=== PATIENT | male | born 1950 | race Caucasian/White ===

== ENCOUNTER 2024-02-26 09:57 | Inpatient (IN) | payer MEDICARE, OTHER ==
[~2024-02-26] VITALS: Ht 180.3 cm; Wt 120.0 kg
[2024-02-26] VITALS (26 sets, daily range): BP systolic 94–155; BP diastolic 47–80
--- NOTE | 2024-02-26 10:00 | NUR ---
PATIENT TO ER ROOM 14 VIA WHEELCHAIR ACCOMPANIED BY SPOUSE.
[2024-02-26] MEDS ORDERED: CEFEPIME HYDROCHLORIDE 1 GM in SODIUM CHLORIDE 0.9% 50 ML IV ONE (10:50)
[2024-02-26] MEDS ORDERED: VANCOMYCIN HCL 1 GM in SODIUM CHLORIDE 0.9% 250 ML IV ONE (10:50)
[2024-02-26 11:04] LABS: BASO% 0.4 % (0-3); EOS% 0.4 % (0-8); HEMATOCRIT 42.3 % (39.0-50.0); HEMOGLOBIN 14.5 g/dl (14.0-18.0); IMMATURE GRANULOCYTES 0.5 % (0.0-5.0); LYMPH% 7.1 % (15-41); MEAN CELL VOLUME 90.4 fL CALC (80.0-100.0); MEAN CORPUSCULAR HGB CONC 34.3 g/dL CAL (32.0-36.0); MONO% 9.3 % (2-13); NEUT# 11.7 thou/uL (1.82-7.42); NEUT% 82.3 % (42-76); RED BLOOD COUNT 4.68 mill/uL (4.70-6.10); RED CELL DISTRI WIDTH 13.5 % (11.5-15.5)
[2024-02-26 11:32] LABS: ALBUMIN 4.1 g/dL (3.2-5.0); C-REACTIVE PROTEIN 8.2 mg/dL (0-0.9); CREATININE 0.8 mg/dL (0.7-1.3); POTASSIUM 3.9 mmol/l (3.5-5.1); TOTAL PROTEIN 8.1 g/dL (6.3-8.2)
[2024-02-26 11:39] LABS: BILIRUBIN, TOTAL 2.9 mg/dL (0.2-1.3)
--- NOTE | 2024-02-26 12:22 | NUR ---
IV ABX STOPPED FOR PATIENT TO GO TO ULTRASOUND AND THEN CONTINUE TO RADIOLOGY FOR CT SCAN
[2024-02-26] MEDS ORDERED: ACETAMINOPHEN 325 MG/TAB PO PRN (15:10)
[2024-02-26] MEDS ORDERED: SODIUM CHLORIDE 0.9% 1,000 ML IV PRN (15:10)
[2024-02-26] MEDS ORDERED: MAGNESIUM HYDROXIDE 30 ML UDC PO PRN (15:10)
[2024-02-26] MEDS ORDERED: FUROSEMIDE20 MG PO (15:20)
[2024-02-26] MEDS ORDERED: LISINOPRIL5 MG PO (15:20)
[2024-02-26] MEDS ORDERED: CELEBREX100 M1 PO (15:22)
[2024-02-26] MEDS ORDERED: [UNRECOGNIZED DRUG - OTHER] PO (15:23)
[2024-02-26] MEDS ORDERED: LORTAB 7.57.5 MG PO (15:24)
[2024-02-26] MEDS ORDERED: ZOFRAN4 MG/TAB PO (15:25)
--- NOTE | 2024-02-26 15:32 | NUR ---
NURSE TO NURSE REPORT COMPLETED WITH MED/SURG
--- NOTE | 2024-02-26 16:34 | NUR ---
S: MEGAN PURCELL is a 73 M who presents with NONHEALING WOUND OF RIGHT LOWER EXTREMITY. He has a history of DIABETES, HTN, CHF, PTST. All medications in patient's chart were reviewed. O: VS: BP 137/53, P 74, RR 18,T 98.6 W 115kg, HT 71 IN, Scr=0.8,CrCl= 87ml/min A: Blood culture is pending WOUND CULTURE IS PENDING P: Patient is on CEFEPIME 2GM IV BID Vancomycin ordered for pharmacy to dose. Start Vancomycin 1G IV Q8H. Vancomycin trough is drawn before the 4th dose on @1230. Vancomycin goal trough is between 10-15 mcg/ml. Pharmacy will follow and or advise on antibiotics use as needed.
[2024-02-26] MEDS ORDERED: INSULIN LISPRO 100 UNITS/ML ML SC SCH (17:00)
--- NOTE | 2024-02-26 17:00 | NUR ---
NEW ADMIT DX RIGHT FOOT INFECTION PATIENT DR PALMER. PATIENT ARRIVED TO FLOOR VIA WHEELCHAIR. PATIENT A/OX 4, NO S/S RESPIRATORY DISTRESS PATIENT ON ROOM AIR AND NO C/O PAIN AT THIS TIME. PATIENT DRESSING TO RIGHT FOOT CLEAN DRY AND INTACT. PATIENT AMBULATES WITH CANE. PATIENT NO BM FOR 4 DAYS, POSITIVE BOWEL SOUNDS, AND PATIENT REFUSED MOM PRN FOR CONSTIPATION AT THIS TIME.
--- NOTE | 2024-02-26 17:12 | NUR ---
patient to room 279 via wheelchair, at his side.
--- NOTE | 2024-02-26 17:21 | NUR ---
glucose level was done in er. was 347.
[2024-02-26] MEDS ORDERED: oxyCODONE HCL 5 MG/TAB PO PRN (18:45)
--- NOTE | 2024-02-26 20:00 | NUR ---
PT RECEIVED IN STABLE CONDITION. A/O X4. RESTING IN BED WITH NO COMPLAINTS. NO S/S OF DISTRESS. ROOM AIR. DRSG TO RIGHT FOOT DRY AND INTACT. CALL LIGHT WITHIN REACH. WILL CONTINUE TO MONITOR.
[2024-02-26] MEDS ORDERED: CEFEPIME HYDROCHLORIDE 2 GM in SODIUM CHLORIDE 0.9% 100 ML IV SCH (21:00)
[2024-02-26] MEDS ORDERED: VANCOMYCIN HCL 1 GM in SODIUM CHLORIDE 0.9% 250 ML IV SCH (21:00)
[2024-02-26] MEDS ORDERED: ENOXAPARIN SODIUM 40 MG/0.4 ML SYR SC SCH (21:00)
[2024-02-26] MEDS ORDERED: CYMBALTA30 MG PO (22:10)
[2024-02-26] MEDS ORDERED: HYDROXYZ HCL25 MG PO (22:12)
[2024-02-26] MEDS ORDERED: hydrOXYzine HCL 25 MG/TAB PO PRN (23:15)
[2024-02-26] MEDS ORDERED: HYDROcodone 7.5 MG/Acetaminophen 325 MG/COMBO PO PRN (23:20)
--- NOTE | 2024-02-26 23:35 | NUR ---
PT C/O RT FOOT PAIN. MEDICATED WITH LORTAB 7.5/325MG PO PRN. SEE MAR. RESTING IN BED. CALL LIGHT WITHIN REACH
[2024-02-27 04:41] VITALS: BP 110/53
[2024-02-27 06:53] VITALS: BP 84/28
--- NOTE | 2024-02-27 07:13 | NUR ---
PATIENT LAYING IN BED. PATIENT A&OX4 AND ABLE TO MAKE NEEDS KNOWN. PATIENT DENIES ANY NEEDS AT THIS TIME.
[2024-02-27 08:34] LABS: BASO% 0.5 % (0-3); EOS% 1.1 % (0-8); HEMATOCRIT 36.7 % (39.0-50.0); IMMATURE GRANULOCYTES 0.4 % (0.0-5.0); LYMPH% 8.6 % (15-41); MEAN CELL VOLUME 90.8 fL CALC (80.0-100.0); MEAN CORPUSCULAR HGB 30.4 pG CALC (26.0-32.0); MEAN CORPUSCULAR HGB CONC 33.5 g/dL CAL (32.0-36.0); MONO% 11.2 % (2-13); NEUT# 9.08 thou/uL (1.82-7.42); NEUT% 78.2 % (42-76); RED BLOOD COUNT 4.04 mill/uL (4.70-6.10); RED CELL DISTRI WIDTH 13.5 % (11.5-15.5)
[2024-02-27 08:44] LABS: HEMOGLOBIN 12.3 g/dl (14.0-18.0)
[2024-02-27 08:53] LABS: ALBUMIN 3.1 g/dL (3.2-5.0); BILIRUBIN, TOTAL 2.3 mg/dL (0.2-1.3); CREATININE 0.6 mg/dL (0.7-1.3); MAGNESIUM 1.7 mg/dL (1.6-2.3); POTASSIUM 3.7 mmol/l (3.5-5.1); TOTAL PROTEIN 6.3 g/dL (6.3-8.2)
[2024-02-27] MEDS ORDERED: CELECOXIB PO SCH (09:00)
[2024-02-27] MEDS ORDERED: DEXTROSE 250 ML IV PRN (11:15)
[2024-02-27] MEDS ORDERED: GADOPICLENOL (VUEWAY) 0.5 MM/ML 3.75MM/7.5ML VIAL IV ONE (11:20)
[2024-02-27] MEDS ORDERED: INSULIN GLARGINE 100 UNITS/ML SC SCH (11:30)
[2024-02-27] MEDS ORDERED: FUROSEMIDE 20 MG/TAB PO SCH (11:30)
--- NOTE | 2024-02-27 12:03 | NUR ---
PATIENT LAYING IN BED. PATIENT DENIES ANY NEEDS AT THIS TIME.
--- NOTE | 2024-02-27 13:04 | NUR ---
S: MEGAN PURCELL is a 73 M who presents with non-healing wound of right lower extremity. O: VS: BP 110/53, P 72, RR 20, T 98.7 W 111 kg, HT 71 in, Scr=0.6, CrCl= 85.9 ml/min Vancomycin trough 02/26@1230 = 12 A: Blood culture is pending. Wound culture is pending. Vancomycin trough level within therapeutic goal range of 10-15. No change in dose warranted. P: Patient is on vancomycin 1 g IV q8h and cefepime 2 g IV q12h. Vancomycin ordered for pharmacy to dose. Continue Vancomycin 1 g IV Q8H. Vancomycin trough is drawn before the dose on 02/26@1330. Vancomycin goal trough is between 10-15 mcg/ml. Pharmacy will follow and or advise on antibiotics use as needed.
[2024-02-27 15:41] VITALS: BP 125/41
--- NOTE | 2024-02-27 15:46 | NUR ---
PATIENT LAYING IN BED. PATIENT DENIES ANY NEEDS AT THIS TIME.
[2024-02-27 19:05] VITALS: BP 126/47
--- NOTE | 2024-02-27 20:44 | NUR ---
PATIENT OBSERVED TO BE RESTING IN BED ON LEFT SIDE. BED SIDE ASSESSMENT COMPLETE. DRESSING TO RIGHT FOOT DRY AND INTACT. NO COMPLAINTS OF PAIN AT THIS TIME. EQUAL UNLABORED RESP. BED AT LOWEST POSITION. CALL LIGHT WITH IN REACH.
[2024-02-27] MEDS ORDERED: DULOXETINE HCl 30 MG/CAP PO SCH (21:00)
[2024-02-27] MEDS ORDERED: LISINOPRIL 5 MG/TAB PO SCH (21:00)
[2024-02-27] MEDS ORDERED: VANCOMYCIN HCL 1 GM in SODIUM CHLORIDE 0.9% 250 ML IV SCH (22:00)
[2024-02-28] VITALS (7 sets, daily range): BP systolic 117–137; BP diastolic 45–71
--- NOTE | 2024-02-28 00:55 | NUR ---
PATIENT IN BED RESTING WITH EYES CLOSED. EQUAL UNLABORED RESP. NO VISUAL SIGNS OF DISTRESS. BED AT LOWEST POSITION. CALL LIGHT WITH IN REACH.
--- NOTE | 2024-02-28 04:49 | NUR ---
PATIENT OBSERVED TO BE RESTING IN BED ON RIGHT SIDE. UNLABORED RESP, NO VISUAL SIGNS OF DISTRESS. BED AT LOWEST POSITION. CALL LIGHT WITH IN REACH.
[2024-02-28 05:26] LABS: BASO% 0.4 % (0-3); EOS% 1.6 % (0-8); HEMATOCRIT 34.9 % (39.0-50.0); HEMOGLOBIN 11.9 g/dl (14.0-18.0); IMMATURE GRANULOCYTES 0.5 % (0.0-5.0); LYMPH% 9.4 % (15-41); MEAN CELL VOLUME 92.1 fL CALC (80.0-100.0); MEAN CORPUSCULAR HGB 31.4 pG CALC (26.0-32.0); MEAN CORPUSCULAR HGB CONC 34.1 g/dL CAL (32.0-36.0); NEUT# 8.24 thou/uL (1.82-7.42); NEUT% 74.1 % (42-76); RED BLOOD COUNT 3.79 mill/uL (4.70-6.10); RED CELL DISTRI WIDTH 13.4 % (11.5-15.5)
[2024-02-28 05:37] LABS: ALBUMIN 2.8 g/dL (3.2-5.0); BILIRUBIN, TOTAL 2.2 mg/dL (0.2-1.3); CREATININE 0.7 mg/dL (0.7-1.3); MAGNESIUM 1.7 mg/dL (1.6-2.3); POTASSIUM 3.6 mmol/l (3.5-5.1); TOTAL PROTEIN 5.9 g/dL (6.3-8.2)
--- NOTE | 2024-02-28 08:36 | NUR ---
PATIENT LAYING IN BED. PATIENT A&OX3 AND ABLE TO MAKE NEEDS KNOWN. PATIENT DENIES ANY NEEDS AT THIS TIME.
--- NOTE | 2024-02-28 11:55 | NUR ---
PATIENT LAYING IN BED. PATIENT DENIES ANY NEEDS AT THIS TIME.
--- NOTE | 2024-02-28 13:15 | NUR ---
REPORT RECEIVED FROM ISABEL AND PT SEEN RESTING IN BED WITH AT BEDSIDE. PT C/O LEFT A/C IV SITE IRRITATING HIM, HENCE REMOVED WITH CATH TIP INTACT AND NEW IV STARTED TO LEFT HAND # 20G X 1 ATTEMPT. PT RAMÓN WELL. PT THEN C/O PAIN TO RIGHT FOOT AND MEDICATED WITH ORDERED LORTAB FOR PAIN 10/23. WILL MONITOR.
[2024-02-28] MEDS ORDERED: ONDANSETRON 4 MG/TAB ODT PO PRN (14:40)
--- NOTE | 2024-02-28 14:42 | NUR ---
S: MEGAN PURCELL is a 73 M who presents with non-healing wound of right foot. O: VS: BP 133/53, P 66, RR 21, T 98 W 111 kg, HT 71 in, Scr=0.7, CrCl= 87 ml/min Vancomycin trough level 02/27@1330 = 13 A: Blood culture is pending. Wound culture is growing normal skin janee. Vancomycin trough level within therapeutic goal range of 10-15. No change in dose is warranted. P: Patient is on vancomycin 1 g IV q8h and cefepime 2g iv q12h. Vancomycin ordered for pharmacy to dose. Continue Vancomycin 1 g IV Q8H. Vancomycin trough is drawn before the dose on 03/01@1330. Vancomycin goal trough is between 10-15 mcg/ml. Pharmacy will follow and or advise on antibiotics use as needed.
[2024-02-28] MEDS ORDERED: HYDROcodone 7.5 MG/Acetaminophen 325 MG/COMBO PO PRN (15:05)
--- NOTE | 2024-02-28 18:00 | NUR ---
PT RESTED ON AND OFF THIS SHIFT WITH VISITING AT BEDSIDE. PT AWAITING POTENTIAL SURGICAL PROCEDURE IN AM. PAIN MANAGED WITH LORTAB AND ZOFRAN FOR NAUSEA. DRESSING TO RIGHT FOOT INTACT. IVF CONTINUE AND PT RAMÓN HIS DIET. WILL CONTINUE TO MONITOR.
--- NOTE | 2024-02-28 19:15 | NUR ---
Pt is alert and orient and able to make needs known. Assessment complete. Dressing to right foot intact with some old dry blood noted. No complaint of pain or discomfort at this time. Bed in low position with call light within reach.
[2024-02-29] VITALS (10 sets, daily range): BP systolic 125–140; BP diastolic 33–62
--- NOTE | 2024-02-29 00:14 | NUR ---
Pt is resting in bed comfortably at this time. No complaint of pain or discomfort. No distress noted. Bed in low position with call light within reach.
--- NOTE | 2024-02-29 04:08 | NUR ---
Pt is resting in bed comfortably at this time. Pt has been NPO since midnight. Pt is showing no s/s of distress or discomfort at this time. Bed in low position with call light within reach.
[2024-02-29 05:48] LABS: BASO% 0.4 % (0-3); EOS% 1.9 % (0-8); HEMATOCRIT 35.5 % (39.0-50.0); HEMOGLOBIN 11.7 g/dl (14.0-18.0); IMMATURE GRANULOCYTES 0.7 % (0.0-5.0); LYMPH% 9.9 % (15-41); MEAN CELL VOLUME 92.9 fL CALC (80.0-100.0); MEAN CORPUSCULAR HGB 30.6 pG CALC (26.0-32.0); MONO% 14.5 % (2-13); NEUT# 7.22 thou/uL (1.82-7.42); NEUT% 72.6 % (42-76); RED BLOOD COUNT 3.82 mill/uL (4.70-6.10); RED CELL DISTRI WIDTH 13.4 % (11.5-15.5)
[2024-02-29 05:52] LABS: ALBUMIN 2.6 g/dL (3.2-5.0); BILIRUBIN, TOTAL 1.7 mg/dL (0.2-1.3); CREATININE 0.6 mg/dL (0.7-1.3); POTASSIUM 3.3 mmol/l (3.5-5.1); TOTAL PROTEIN 5.7 g/dL (6.3-8.2)
[2024-02-29 06:09] LABS: MAGNESIUM 1.7 mg/dL (1.6-2.3)
--- NOTE | 2024-02-29 07:15 | NUR ---
REPORT RECEIVED FROM MAGNOLIA. PT RESTING IN BED TO RIGHT SIDE. AWAITING SURGERY. HOWEVER, DR. TORRES CALLED AND SX SCHEDULED FOR TOMORROW. D/W DR. TORRES NEED FOR BOWEL REGIME D/T PT HAVING NO BM X 5 DAYS. ORDERS RECEIVED AND PT UPDATED ON POC. TO BE NPO AFTER MN TONIGHT. RIGHT FOOT DRESSING REMAINS INTACT WITH RIGHT LE REDNESS. WILL MONITOR.
[2024-02-29] MEDS ORDERED: Polyethylene Glycol 3350 17 GM/PKT PO PRN (07:50)
[2024-02-29] MEDS ORDERED: MAGNESIUM HYDROXIDE 30 ML UDC PO PRN (07:50)
[2024-02-29] MEDS ORDERED: DOCUSATE SODIUM 100 MG/CAP PO SCH (09:00)
[2024-02-29] MEDS ORDERED: INSULIN GLARGINE 100 UNITS/ML SC SCH (09:00)
--- NOTE | 2024-02-29 12:00 | NUR ---
RIGHT FOOT DRESSING CHANGED WITH ODOR NOTED. PT HAVING MODERATE DRAINAGE HENCE OPTIFOAM PLACED WITH GAUZE AND KERLIX WRAP WITH LESLYE. PT RAMÓN WELL. PAIN MANAGED WITH ORDERED LORTAB. WILL MONITOR.
--- NOTE | 2024-02-29 16:00 | NUR ---
PT TO MRI VIA W/C. AT BEDSIDE AND UPDATED ON POC. PT TO BE NPO AFTER MN FOR SURGERY. WILL MONITOR
--- NOTE | 2024-02-29 18:15 | NUR ---
PT RESTED ON AND OFF THIS SHIFT AND COMPLETED MRI. AWAITING SURGERY SCHEDULED FOR TOMORROW. INSTRUCTED ON NPO AFTER MN. PT TO AWAIT SPEAKING TO MD ACSSIDY: SURGICAL PROCEDURE TO SIGN CONSENT. PAIN MANAGED WITH LORTAB AND IV REMAINED PATENT. PT DID HAVE A BM THIS AFTERNOON. VISITED WELL AND CALL LIGHT MAINTAINED IN REACH.
--- NOTE | 2024-02-29 20:00 | NUR ---
PATIENT SITTING UP IN RECLINER-ALERT AND OPRIENTEDX3. PATIENT WITH IVF PATENT AND INFUSING VIA LEFT HAND ORDERED AT 100CC/HR. DRESSING TO RIGHT FOOT INTACT AT THIS TIME. ENCOURAGED TO ELEVATE RIGHT FOOT WHEN POSSIBLE. TELE MONITOR IN PLACE READING SR-70'S. SAFETY PRECAUTIONS REINFORCED. CALL LIGHT IN REACH. WILL CONT TO MONITOR.
--- NOTE | 2024-02-29 21:00 | NUR ---
PATIENT RESTING IN BED AT THIS TIME. PATIENT REFUSED STOOL SOFTNER EVEN THOUGH HE STATES THAT HE ONLY HAD FAIR BM TODAY AFTER TAKING LAXATIVES. LOVENOX WAS HELD-PLATELET CT WAS 8U1 AND PATIENT IS SCHEDULED FOR OR ON RIGHT FOOT IN THE AM. SAFETY PRECAUTIONS REINFORCED. CALL LIGHT IN REACH. WILL CONT TO MONITOR.
--- NOTE | 2024-02-29 23:00 | NUR ---
PATIENT UP TO THE BR-STATES THAT HE CONT TO HAVE BM'S TONIGHT. VOIDED APPROX 100CC OF FRANTZ URINE. MEDICATED FOR PAIN TO RIGHT FOOT WITH LORTAB 7.5MG PO. WOUND CARE TO RIGHT FOOT ORDERED. MODERATE AMT OF SEROSANGUINOUS FLUID NOTED ON OLD DRESSING. NEW DRY DRESSING APPLIED ORDERED. SECURED WITH LESLYE WRAP AND SURGIFLEX. ELEVATED RIGHT FOOT ON PILLOW. IVF PATENT AND INFUSING ORDERED VIA LEFT HAND. SAFETY PRECAUTIONS REINFORCED. CALL LIGHT IN REACH. WILL CONT TO MONITOR.
[2024-03-01] VITALS (13 sets, daily range): BP systolic 126–150; BP diastolic 41–74
--- NOTE | 2024-03-01 03:00 | NUR ---
PATIENT IS RESTING IN BED AT THIS TIME WITH EYES CLOSED. RESPS ARE EVEN AND UNLABORED. NPO FOR OR THIS MORNING. RIGHT FOOT ELEVATED ON PILLOW. DRESSING TO RIGHT FOOT INTACT, TELE MONITOR IN PLACE-READING SR-60'S. IVF NS PATENT AND INFUSING VIA LEFT HAND SITE AT 100CC/HR. CALL LIGHT IN REACH. WILL CONT TO MONITOR.
[2024-03-01 05:10] LABS: BASO% 0.4 % (0-3); EOS% 1.9 % (0-8); HEMATOCRIT 33.1 % (39.0-50.0); HEMOGLOBIN 11.3 g/dl (14.0-18.0); IMMATURE GRANULOCYTES 0.9 % (0.0-5.0); LYMPH% 8.5 % (15-41); MEAN CELL VOLUME 91.4 fL CALC (80.0-100.0); MEAN CORPUSCULAR HGB 31.2 pG CALC (26.0-32.0); MEAN CORPUSCULAR HGB CONC 34.1 g/dL CAL (32.0-36.0); MONO% 14.8 % (2-13); NEUT# 7.92 thou/uL (1.82-7.42); NEUT% 73.5 % (42-76); RED BLOOD COUNT 3.62 mill/uL (4.70-6.10); RED CELL DISTRI WIDTH 13.4 % (11.5-15.5)
[2024-03-01 05:22] LABS: ALBUMIN 2.5 g/dL (3.2-5.0); BILIRUBIN, TOTAL 1.3 mg/dL (0.2-1.3); CREATININE 0.7 mg/dL (0.7-1.3); MAGNESIUM 1.8 mg/dL (1.6-2.3); POTASSIUM 3.2 mmol/l (3.5-5.1); TOTAL PROTEIN 5.6 g/dL (6.3-8.2)
--- NOTE | 2024-03-01 06:44 | NUR ---
pt aox4, respirations are even and unlabored on room air, lungs are clear throughout, bowel sounds active. pt about to leave for sx.
--- NOTE | 2024-03-01 06:45 | NUR ---
pt off the floor via staff transport for sx.
[2024-03-01] MEDS ORDERED: BUPIVACAINE HCL PF 0.5% 30 ML VIAL ONE (07:06)
[2024-03-01] MEDS ORDERED: SODIUM CHLORIDE 0.9% 1,000 ML IV ONE (09:33)
[2024-03-01] MEDS ORDERED: KETOROLAC TROMETHAMINE 30 MG/ML SDV ONE (09:47)
[2024-03-01] MEDS ORDERED: MORPHINE SULFATE 4 MG/ML VIAL ONE (09:47)
[2024-03-01] MEDS ORDERED: PROPOFOL 200 MG/20 ML VIAL IV ONE (09:51)
[2024-03-01] MEDS ORDERED: ACETAMINOPHEN 1,000 MG/100 ML VIAL IV ONE (09:51)
--- NOTE | 2024-03-01 10:30 | NUR ---
PT RETURNED TO UNIT VIA STAFF TRANSPORT FROM SURGERY.
[2024-03-01] MEDS ORDERED: FAMOTIDINE 10MG/ML 2ML SDV IV ONE (12:00)
[2024-03-01] MEDS ORDERED: ONDANSETRON HCl 4 MG/2 ML SDV IV ONE (12:00)
--- NOTE | 2024-03-01 12:35 | NUR ---
PT SITTING UP AT SIDE OF THE BED EATING LUNCH AT THIS TIME. SO FAR PT IS TOLARATING LUNCH WITH NO COMPLAINTS.
--- NOTE | 2024-03-01 14:35 | NUR ---
CALL PLACED TO PHARMACY FOR TONA TAVAREZ. PHARMACY WORKING ON CHANGED DOES AT THIS TIME.
--- NOTE | 2024-03-01 15:08 | NUR ---
S: MEGAN PURCELL is a 73 M who presents with cellulitis. Patient underwent surgery on 03/01. MRI foot on 02/28 showed no evidence of osteomyelitis. O: VS: BP 126/41, P 6, RR 20,T 97.7 W 116.8 kg, HT 71 in, Scr= 0.7,CrCl= 87 ml/min A: Blood culture shows no growth at 48 hrs. Wound culture is pending. P: Patient is on Vancomycin and Cefepime. Vancomycin ordered for pharmacy to dose. Vancomycin trough resulted on 03/01 1330 was 18 mcg/ml. Change Vancomycin to 1250 mg IV q12h. Vancomycin trough is drawn before the 4th dose on 03/03 0530. Vancomycin goal trough is between <10-15 mcg/ml>. Pharmacy will follow and or advise on antibiotics use as needed.
[2024-03-01] MEDS ORDERED: VANCOMYCIN HCL 1,250 MG in SODIUM CHLORIDE 0.9% 225 ML IV SCH (18:00)
--- NOTE | 2024-03-01 20:00 | NUR ---
PATIENT RESTING IN BED AT THIS TIME-POSITIONED ON RIGHT SIDE. PATIENT IS AWAKE ALERT AND ORIENTEDX3. PATIENT WITH DRESSING TO RIGHT FOOT INTACT AND SECURED WITH LESLYE WRAP. ENCOURAGED PATIENT TO KEEP RIGHT FOOT ELEVATED ON 2 PILLOWS WHEN POSSIBLE. ALSO INSTRUCTED PATIENT ON NON-WEIGHT BEARING STATUS. TELE MONITOR IN PLACE AND READING SR-60'S. IVF PATENT AND INFUSING LEFT HAND/WRIST SITE AT 100CC/HR. SITE IS HEALTHY WITH GOOD BLOOD RETURN WHEN FLUSHED. LUNGS ARE CLEAR. INSTRUCTED ON USE OF IS Q1H WHILE AWAKE IN REPS OF 10. PATIENT REFUSING STOOL SOFTNER TONIGHT-STATES THAT HE WILL TAKE IT TOMORROW. VOIDING FRANTZ URINE AT BEDSIDE. SAFETY PRECAUTIONS REINFORCED. CALL LIGHT IN REACH. WILL CONT TO MONITOR.
--- NOTE | 2024-03-01 21:00 | NUR ---
PATIENT RESTING IN BED-BLOOD SUGAR WAS 279-COVERED WITH 3UNITS OF HUMALOG INSULIN PER [employer] PROTOCOL. PROVIDED WITH HS SNACK. CALL LIGHT IN REACH. WILL CONT TO MONITOR.
[2024-03-02] VITALS (10 sets, daily range): BP systolic 141–165; BP diastolic 54–69
--- NOTE | 2024-03-02 | NUR ---
PATIENT RESTING IN BED WITH RIGHT FOOT ELEVATED ON PILLOWS. RIGHT FOOT DRESSING REMAINS INTACT SECURED WITH LESLYE WRAP. SOME SEROGANUINOUS DRAINAGE NOTED ON DRESSING. IVF PATENT AND INFUSING VIA LEFT WRIST/HAND AT 100CC/HR. TELE MONITOR IN PLACE AND READING SR-60'S. EYES ARE CLOSED AND RESPS ARE EVEN AND UNLABORED. CALL LIGHT IN REACH. WILL CONT TO MONITOR.
--- NOTE | 2024-03-02 04:00 | NUR ---
PATIENT RESTING IN BED AT THIS TIME WITH EYES CLOSED. RESPS ARE EVEN AND UNLABORED. RIGHT FOOT ELEVATED ON PILLOWS WITH DRESSING INTACT. TELE MONITOR IN PLACE AND READING SR-60'S. IVF PATENT AND INFUSING VIA LEFT WRIST AT 100CC/HR. CALL LIGHT IN REACH. WILL CONT TO MONITOR.
[2024-03-02 05:34] LABS: BASO% 0.5 % (0-3); EOS% 2.5 % (0-8); HEMATOCRIT 29.1 % (39.0-50.0); HEMOGLOBIN 10.1 g/dl (14.0-18.0); IMMATURE GRANULOCYTES 2.4 % (0.0-5.0); LYMPH% 10.1 % (15-41); MEAN CELL VOLUME 90.1 fL CALC (80.0-100.0); MEAN CORPUSCULAR HGB 31.3 pG CALC (26.0-32.0); MEAN CORPUSCULAR HGB CONC 34.7 g/dL CAL (32.0-36.0); MONO% 14.2 % (2-13); NEUT# 7.18 thou/uL (1.82-7.42); NEUT% 70.3 % (42-76); RED BLOOD COUNT 3.23 mill/uL (4.70-6.10); RED CELL DISTRI WIDTH 13.3 % (11.5-15.5)
[2024-03-02 05:49] LABS: ALBUMIN 2.3 g/dL (3.2-5.0); BILIRUBIN, TOTAL 1.1 mg/dL (0.2-1.3); CREATININE 0.8 mg/dL (0.7-1.3); MAGNESIUM 1.7 mg/dL (1.6-2.3); TOTAL PROTEIN 5.4 g/dL (6.3-8.2)
--- NOTE | 2024-03-02 07:47 | NUR ---
PT IS AOX4, RESPIRAYIONS ARE EVEN AND UNLABORED ON ROOM AIR, LUNGS ARE CLEAR, BOWEL SOUNDS ARE ACTIVE, LEFT PEDAL PULSES IS STRONG TO THE THE TOUCH, RIGHT FOOT DRESSING WITH SOME SHADOWING NEAR THE TOES, PT DID NOT HAVE FOOT ELEVATED, REEDUCATED PT ON HAVING FOOT EVEVATED ON PILLOWS, PT REPORTS PAIN AT A 10 ON A 0-10 PAIN SCALE. WILL BRING PT ORDERED PRN PAIN MEDICATION.
[2024-03-02] MEDS ORDERED: INSULIN GLARGINE 100 UNITS/ML SC SCH (09:00)
[2024-03-02] MEDS ORDERED: POTASSIUM CHLORIDE 20 MEQ/TAB PO SCH (10:00)
--- NOTE | 2024-03-02 10:16 | NUR ---
PT OFF THE FLOOR VIA WHEELCHAIR TRANSPORT FOR PICC PLACEMENT.
--- NOTE | 2024-03-02 10:55 | NUR ---
PT RETURNED TO UNIT FROM PICC PLACEMENT.
--- NOTE | 2024-03-02 12:10 | NUR ---
telephone order taken from dr valencia to remove right foot dressing, pull packing, recover with 4x4 covered in betadine, wraped with kurlex.
--- NOTE | 2024-03-02 13:31 | NUR ---
PERFORMED RIGHT FOOT DRESSING CHANGE. REMOVED WRAP, REMOVED 4X4 AND PULLED PACKING, WOUND ARE ODORUS. RECOVED WITH ORDERED BETADINE 4X4, KURLEX AND COVERED WITH LESLYE WRAP. PT TOLERATED WITH NO COMPLAINTS.
--- NOTE | 2024-03-02 13:39 | NUR ---
TELEPHONE ORDER TAKEN FROM DR PALMER TO PLACE ORDER FOR RIGHT FOOT I&D FOR TOMORROW WITH DR PALMER
--- NOTE | 2024-03-02 19:26 | NUR ---
PATIENT OBSERVED RESTING IN BED. ALERT AND ABLE TO MAKE NEEDS KNOWN. ASSESSMENT COMPLETE. NO COMPLAINTS OF PAIN AT THIS TIME. NO DISTRESS NOTED. PATIENT IS ABLE TO CHANGE POSITIONS ON HIS OWN. DRESSING TO RIGHT FOOT INTACT. PATIENT HAS ELEVATED ON PILLOW. CIRCULATION WNL. DENIES NEEDING ANYTHING AT THIS TIME. BED IN LOW POSITION. CALL HOWARD AND BELONGINGS IN REACH.
--- NOTE | 2024-03-02 23:39 | NUR ---
PATIENT REMAINS RESTING IN BED ON HIS LEFT SIDE. NO COMPLAINTS VOICED. DENIES NEEDING ANYTHING AT THIS TIME. BED IN LOW POSITION. CALL HOWARD IN REACH.
[2024-03-03] VITALS (16 sets, daily range): BP systolic 130–165; BP diastolic 47–75
--- NOTE | 2024-03-03 04:03 | NUR ---
PATIENT REMAINS RESTING IN BED. DENIES NEEDING ANYTHING AT THIS TIME. BED REMAINS IN LOW POSITION. CALL HOWARD AND BELONGINGS IN REACH.
[2024-03-03 05:28] LABS: ALBUMIN 2.4 g/dL (3.2-5.0); CREATININE 0.8 mg/dL (0.7-1.3); MAGNESIUM 1.6 mg/dL (1.6-2.3); POTASSIUM 3.1 mmol/l (3.5-5.1); TOTAL PROTEIN 5.6 g/dL (6.3-8.2)
[2024-03-03 05:40] LABS: BASO% 0.6 % (0-3); EOS% 2.3 % (0-8); HEMATOCRIT 28.9 % (39.0-50.0); IMMATURE GRANULOCYTES 3.1 % (0.0-5.0); LYMPH% 10.7 % (15-41); MEAN CORPUSCULAR HGB 31.2 pG CALC (26.0-32.0); MEAN CORPUSCULAR HGB CONC 34.6 g/dL CAL (32.0-36.0); NEUT# 5.76 thou/uL (1.82-7.42); NEUT% 69.3 % (42-76); RED BLOOD COUNT 3.21 mill/uL (4.70-6.10); RED CELL DISTRI WIDTH 13.3 % (11.5-15.5)
--- NOTE | 2024-03-03 06:55 | NUR ---
DR PALMER AT BEDSIDE DISCUSSING PLAN OF CARE WITH PT AT THIS TIME.
--- NOTE | 2024-03-03 07:10 | NUR ---
PT IS AOX4, RESPIRATIONS ARE EVEN AND UNLABORED ON ROOM AIR BUT PT DOES REPORT FEELING "SHORT OF BREATH" WITH AMBULATION LASTNIGHT, LUNGS ARE CLEAR THROUGHOUT, BOWEL SOUNDS ARE ACTIVE, RIGHT FOOT IS COVERED IN DRESSING, LEFT PEDAL PULSES IS PALPABLE TO TOUCH, PT REPORTS PAIN "NOT MUCH" THIS MORNING. PT DOES REPORT HAVING TO VOID "16 TIMES" OVERNIGHT AND IS SAYING HE DOES NOT WANT TO TAKE THE LASIX. NURSE INFORMED PT HE SHOULD DISCUSS THAT WITH THE DOCTOR THIS MORNING.
[2024-03-03] MEDS ORDERED: INSULIN GLARGINE 100 UNITS/ML SC SCH (09:00)
--- NOTE | 2024-03-03 09:00 | NUR ---
PT REPORTS FEELING LIKE HES "WHEEZING" NURSE LISTED TO PT'S LUNGS AND DID NOT HEAR ANY WHEEZING. REINFORCED THE USE OF THE IS. PT STATES SHE UNDERSTANDS.
[2024-03-03] MEDS ORDERED: PROPOFOL 200 MG/20 ML VIAL IV ONE (09:51)
[2024-03-03] MEDS ORDERED: GLYCOPYRROLATE 0.2 MG/ML IV ONE (09:51)
--- NOTE | 2024-03-03 10:33 | NUR ---
PT LEFT THE UNIT VIA STAFF TRANSPORT FOR SURGERY.
[2024-03-03] MEDS ORDERED: STERILE WATER FOR IRRIGATION 1,000 ML BTL IR ONE (10:42)
[2024-03-03] MEDS ORDERED: BUPIVACAINE HCL PF 0.5% 30 ML VIAL ONE (10:42)
[2024-03-03] MEDS ORDERED: SODIUM CHLORIDE 0.9% 1,000 ML IV ONE ×2 (10:42→10:50)
[2024-03-03] MEDS ORDERED: FAMOTIDINE 10MG/ML 2ML SDV IV ONE (11:03)
[2024-03-03] MEDS ORDERED: POTASSIUM CHLORIDE 20 MEQ/TAB PO SCH (13:30)
--- NOTE | 2024-03-03 13:56 | NUR ---
S: MEGAN PURCELL is a 73 M who presents with nonhealing wound of the right foot. O: VS: BP 138/66, P 78, RR 16, T 97.3 W 119.4 kg, HT 71 in, Scr=0.8, CrCl= 89 ml/min Vancomycin trough 03/03/24@0500 = 17 A: Vancomycin trough level above therapeutic range of 10-15. Decrease in dose is warranted. P: Patient is on vancomycin 1250 mg IV q12h and cefepime 2 g IV q12h. Vancomycin ordered for pharmacy to dose. Decrease Vancomycin to 1g IV Q12H. Vancomycin trough is drawn before the 4th dose on 03/05@0530. Vancomycin goal trough is between 10-15 mcg/ml. Pharmacy will follow and or advise on antibiotics use as needed.
--- NOTE | 2024-03-03 14:00 | NUR ---
pt returned to unit from post-op after 2nd I & D with KRUSE. PTS RESPIRATIONS ARE EVEN AND UNLABORED BUT HIS O2 WAS DROPPING TO 89% ON ROOM AIR SO HE WAS PLACED ON 2L O2 BRINGING HIS OXYGEN SAT UP TO 96%. PT'S FOOT PLACED ON 2 PILLOWS ORDERED. REEDUCATED PT ON THE "NO WEIGHT BARING" ORDER.
--- NOTE | 2024-03-03 14:23 | NUR ---
PT REPORTING A SHARP PAIN IN LEFT FOOT AT A 10 ON A 0-10 PAIN SCALE. PROVIDED PT WITH THE ORDERED PRN PAIN MEDICATION.
[2024-03-03] MEDS ORDERED: HYDROmorphone HCL 2 MG/AMP IV PRN (14:55)
[2024-03-03] MEDS ORDERED: metFORMIN HYDROCHLORIDE 500 MG/TAB PO SCH (17:30)
[2024-03-03] MEDS ORDERED: VANCOMYCIN HCL 1 GM in SODIUM CHLORIDE 0.9% 250 ML IV SCH (18:00)
--- NOTE | 2024-03-03 19:15 | NUR ---
PATIENT OBSERVED RESTING IN BED ON HIS RIGHT SIDE. ASSESSMENT COMPLETE. NO DISTRESS NOTED. NO COMPLAINTS OF PAIN AT THIS TIME. DRESSING TO RT FOOT CDI WITH LESLYE WRAP. DENIES NEEDING ANYTHING AT THIS TIME. BED REMAINS IN LOW POSITION. CALL HOWARD IN REACH.
--- NOTE | 2024-03-03 23:30 | NUR ---
PATIENT REMAINS RESTING IN BED ON HIS SIDE. CHANGES POSITIONS FREQUENTLY. NO COMPLAINTS OF PAIN VOICED TO FOOT. DENIES NEEDING ANYTHING AT THIS TIME. BED REMAINS IN LOW POSITION. CALL HOWARD IN REACH.
[2024-03-04] VITALS: BP 130/55
--- NOTE | 2024-03-04 03:35 | NUR ---
PATIENT REMAINS RESTING IN BED. NO COMPLAINTS VOICED. NO DISTRESS NOTED. DRESSING REMAINS INTACT TO FOOT. DENIES NEEDING ANYTHING AT THIS TIME. CALL HOWARD AND BELONGINGS REMAIN IN REACH.
[2024-03-04 03:39] VITALS: BP 153/73
[2024-03-04 04:00] VITALS: BP 153/73
[2024-03-04 05:13] LABS: BASO% 0.7 % (0-3); EOS% 2.8 % (0-8); HEMATOCRIT 28.4 % (39.0-50.0); HEMOGLOBIN 9.7 g/dl (14.0-18.0); IMMATURE GRANULOCYTES 3.8 % (0.0-5.0); LYMPH% 12.7 % (15-41); MEAN CELL VOLUME 89.6 fL CALC (80.0-100.0); MEAN CORPUSCULAR HGB 30.6 pG CALC (26.0-32.0); MEAN CORPUSCULAR HGB CONC 34.2 g/dL CAL (32.0-36.0); MONO% 12.3 % (2-13); NEUT# 5.63 thou/uL (1.82-7.42); NEUT% 67.7 % (42-76); RED BLOOD COUNT 3.17 mill/uL (4.70-6.10); RED CELL DISTRI WIDTH 13.5 % (11.5-15.5)
[2024-03-04 05:27] LABS: ALBUMIN 2.4 g/dL (3.2-5.0); CREATININE 0.8 mg/dL (0.7-1.3); MAGNESIUM 1.6 mg/dL (1.6-2.3); POTASSIUM 3.2 mmol/l (3.5-5.1); TOTAL PROTEIN 5.8 g/dL (6.3-8.2)
[2024-03-04] MEDS ORDERED: POTASSIUM CHLORIDE 20 MEQ/TAB PO SCH (09:00)
[2024-03-04] MEDS ORDERED: cefTRIAXone SODIUM 2 GM in SODIUM CHLORIDE 0.9% 100 ML IV SCH (09:00)
[2024-03-04] MEDS ORDERED: ALPRAZolam 0.5 MG/TAB PO SCH (10:30)
[2024-03-04 16:01] VITALS: BP 141/55
--- NOTE | 2024-03-04 16:47 | NUR ---
patient alert and oriented x4 had a good day today walked in the halways with , tylenol for headache. trop negative.
[2024-03-04 18:19] VITALS: BP 151/66
--- NOTE | 2024-03-04 19:35 | NUR ---
PATIENT OBSERVED TO BE SITTING AT BED SIDE. A&O x4. RIGHT FOOT LESLYE BANDAGE, SLIGHT REDNESS TO BILATERAL LEGS. NO COMPLAINTS OF PAIN AT THIS TIME. EQUAL UNLABORED RESP, NO VISUAL SIGHNS OF DISTRESS. BED AT LOWEST POSITION. CALL LIGHT WITH IN REACH.
[2024-03-04 20:03] VITALS: BP 151/66
[2024-03-05] VITALS (7 sets, daily range): BP systolic 135–157; BP diastolic 49–70
--- NOTE | 2024-03-05 00:49 | NUR ---
PATIENT OBSERVED TO BE RESTING IN BED ON RIGHT SIDE. PATIENT RESPONDS TO VERBAL STIMULI. EQUAL UNLABORED RESP NO VISUAL SIGNS OF DISTRESS. CAN MAKE NEEDS KNOWN, NONE NEEDED AT THIS TIME. BED AT LLOWEST POSITION. CALL LIGHT WITH IN REACH.
--- NOTE | 2024-03-05 04:46 | NUR ---
PATIENT OBSERVED TO BE RESTING IN BED WITH EYES CLOSED. PATIENT HAS EQUAL UNLABORED RESP, NO VISUAL SIGNS OF DISTRESS. BED AT LOWEST POSITION. CALL LIGHT WITH IN REACH.
[2024-03-05 05:23] LABS: BASO% 0.9 % (0-3); EOS% 3.4 % (0-8); HEMATOCRIT 26.6 % (39.0-50.0); IMMATURE GRANULOCYTES 4.1 % (0.0-5.0); LYMPH% 16.9 % (15-41); MEAN CELL VOLUME 90.5 fL CALC (80.0-100.0); MEAN CORPUSCULAR HGB 30.6 pG CALC (26.0-32.0); MEAN CORPUSCULAR HGB CONC 33.8 g/dL CAL (32.0-36.0); MONO% 13.3 % (2-13); NEUT# 3.6 thou/uL (1.82-7.42); NEUT% 61.4 % (42-76); RED BLOOD COUNT 2.94 mill/uL (4.70-6.10); RED CELL DISTRI WIDTH 13.6 % (11.5-15.5)
[2024-03-05 05:25] LABS: ALBUMIN 2.5 g/dL (3.2-5.0); BILIRUBIN, TOTAL 0.8 mg/dL (0.2-1.3); CREATININE 0.8 mg/dL (0.7-1.3); MAGNESIUM 1.6 mg/dL (1.6-2.3); POTASSIUM 2.9 mmol/l (3.5-5.1); TOTAL PROTEIN 5.8 g/dL (6.3-8.2)
--- NOTE | 2024-03-05 07:19 | NUR ---
PATIENT LYING SUPINE IN BED WITH EYES CLOSED. BREATHING UNLABORED ON ROOM AIR. TELE INTACT. ANDI PICC SL;SITE CLEAN AND INTACT. PT STATES TO WANT SOMETHING FOR PAIN. DENIES ANY N/D/V AT THIS TIME. MEDICATION REVIEWED AND PT INFORMED THAT PAIN MEDS WILL BE GIVEN WITH MORNING MEDICATION. NO OTHER NEEDS AT THIS TIME. PERSONAL ITEMS WELL CALL LIGHT WITHIN REACH;PT VERBALIZED UNDERSTANDING OF USE. BED IN LOWEST POSITION. POC ONGOING.
--- NOTE | 2024-03-05 12:13 | NUR ---
PATIENT LYING IN BED SUPINE. BREATHING UNLABORED ON ROOM AIR. TELE INTACT. ANDI PICC SL;SITE CLEAN AND INTACT. AT BEDSIDE. PT DENIES ANY PAIN OR N/D/V AT THIS TIME. RIGHT FOOT DRESSING C/D/I. PERSONAL ITEMS WELL CALL LIGHT WITHIN REACH. BED IN LOWEST POSITION. POC ONGOING.
--- NOTE | 2024-03-05 16:32 | NUR ---
PATIENT UP SITTING IN RECLINER ON CELLPHONE. BREATHING UNLABORED ON ROOM AIR. TELE INTACT. ANDI PICC SL;SITE CLEAN AND INTACT. PT DENIES ANY PAIN OR N/D/V AT THIS TIME. PERSONAL ITEMS WELL CALL LIGHT WITHIN REACH. DRESSING ON RIGHT FOOT C/D/I. NO OTHER NEEDS AT THIS TIME. POC ONGOING.
--- NOTE | 2024-03-05 19:00 | NUR ---
REPORT RECEIVED FROM Ladonna CISSE LPN
--- NOTE | 2024-03-05 20:00 | NUR ---
PATIENT RESTING IN BED, NAD. REMINDED PATIENT HE IS TO BE NPO AT MIDNIGHT.
--- NOTE | 2024-03-05 21:50 | NUR ---
LOVENOX HELD, PATIENT TO GO TO SURGERY IN THE AM. Joann BERKOWITZ AND Joann HECK NOTIFIED AND ARE OKAY WITH HOLDING LOVENOX.
[2024-03-06] VITALS (10 sets, daily range): BP systolic 102–146; BP diastolic 45–62
--- NOTE | 2024-03-06 | NUR ---
PATIENT RESTING IN BED, NAD. INFORMED PATIENT HE IS TO BE NPO.
--- NOTE | 2024-03-06 04:42 | NUR ---
AM LABS COLLECTED FROM PICC LINE. FLUSHED AND PATENT WITH POSITIVE BLOOD RETURN.
[2024-03-06 04:58] LABS: HEMATOCRIT 26.9 % (39.0-50.0); HEMOGLOBIN 9.2 g/dl (14.0-18.0); MEAN CELL VOLUME 90.3 fL CALC (80.0-100.0); MEAN CORPUSCULAR HGB 30.9 pG CALC (26.0-32.0); MEAN CORPUSCULAR HGB CONC 34.2 g/dL CAL (32.0-36.0); RED BLOOD COUNT 2.98 mill/uL (4.70-6.10); RED CELL DISTRI WIDTH 13.5 % (11.5-15.5)
[2024-03-06 05:10] LABS: ALBUMIN 2.3 g/dL (3.2-5.0); BILIRUBIN, TOTAL 0.7 mg/dL (0.2-1.3); CREATININE 0.8 mg/dL (0.7-1.3); POTASSIUM 2.9 mmol/l (3.5-5.1); TOTAL PROTEIN 5.7 g/dL (6.3-8.2)
--- NOTE | 2024-03-06 06:39 | NUR ---
JOB BERKOWITZ NOTIFIED OF PATIENTS POTASSIUM OF 2.9. VERBAL RECEIVED TO ORDER MAGNESIU, LAB. CALLED FOR MED VERIFICATION AND DIE CUTTING MACHINE OPERATOR NOTIFIED OF NEED FOR MEDICATION.
[2024-03-06] MEDS ORDERED: POTASSIUM CHLORIDE 20MEQ 100 ML IV SCH (06:45)
--- NOTE | 2024-03-06 06:45 | NUR ---
PATIENT LYING ON LEFT SIDE IN BED WITH EYES CLOSED RESTING. BREATHING UNLABORED ON ROOM AIR. TELE INTACT. ANDI PICC INFUSING FLUIDS PER EMAR;SITE CLEAN AND INTACT. PT DENIES ANY PAIN OR N/D/V AT THIS TIME. BED IN LOWEST POSITION. PERSONAL ITEMS WELL CALL LIGHT WITHIN REACH. NO NEEDS AT THIS TIME. POC ONGOING.
--- NOTE | 2024-03-06 07:11 | NUR ---
PT LEAVING UNIT VIA STRETCHER TO OR.
[2024-03-06] MEDS ORDERED: SODIUM CHLORIDE 0.9% 10 ML SYR ONE (07:23)
[2024-03-06] MEDS ORDERED: LACTATED RINGER'S 1,000 ML IV ONE (07:29)
[2024-03-06] MEDS ORDERED: BUPIVACAINE HCL PF 0.5% 30 ML VIAL ONE (07:35)
[2024-03-06] MEDS ORDERED: FAMOTIDINE 10MG/ML 2ML SDV IV ONE (07:41)
[2024-03-06] MEDS ORDERED: CALCIUM CHLORIDE 10% 100 MG/ML 10ML SYR IV ONE (09:35)
[2024-03-06] MEDS ORDERED: KETOROLAC TROMETHAMINE 30 MG/ML SDV IV ONE (09:51)
[2024-03-06] MEDS ORDERED: MORPHINE SULFATE 4 MG/ML VIAL IV ONE (09:51)
[2024-03-06] MEDS ORDERED: LACTATED RINGER'S 1,000 ML BAG IV ONE (09:51)
[2024-03-06] MEDS ORDERED: PHENYLEPHRINE HCL 10 MG/ML VIAL IV ONE (09:51)
[2024-03-06] MEDS ORDERED: ACETAMINOPHEN 1,000 MG/100 ML VIAL IV ONE (09:51)
[2024-03-06] MEDS ORDERED: GLYCOPYRROLATE 0.2 MG/ML IV ONE (09:51)
[2024-03-06] MEDS ORDERED: ePHEDrine SULFATE 50 MG/ML AMP IV ONE (09:51)
[2024-03-06] MEDS ORDERED: PROPOFOL 200 MG/20 ML VIAL IV ONE (09:51)
[2024-03-06] MEDS ORDERED: HYDROmorphone HCL 2 MG/AMP ONE (10:01)
[2024-03-06 10:35] LABS: HEMATOCRIT 25.6 % (39.0-50.0); HEMOGLOBIN 8.4 g/dl (14.0-18.0)
--- NOTE | 2024-03-06 10:46 | NUR ---
PT BACK TO UNIT FROM OR VIA STRETCHER.
[2024-03-06] MEDS ORDERED: MAGNESIUM SULFATE HEPTAHYDRATE 50 ML IV ONE (11:00)
--- NOTE | 2024-03-06 12:48 | NUR ---
PATIENT SITTING UP ON SIDE OF BED EATING LUNCH. BREATHING UNLABORED ON ROOM AIR. TELE INTACT. ANDI PICC INFUSING FLUIDS PER EMAR;SITE CLEAN AND INTACT. PT STATES TO WANT SOMETHING FOR PAIN;MEDICATION REVIEWED. DENIES ANY N/D/V AT THIS TIME. BED IN LOWEST POSITION. PERSONAL ITEMS WELL CALL LIGHT WITHIN REACH. POC ONGOING.
--- NOTE | 2024-03-06 13:43 | NUR ---
Pt asked multiple times for pain medication. Notified nurse Maricarmen @12:30.
[2024-03-06] MEDS ORDERED: IRON SUCROSE COMPLEX 200 MG in SODIUM CHLORIDE 0.9% 100 ML IV SCH (14:23)
--- NOTE | 2024-03-06 16:43 | NUR ---
PATIENT LYING IN BED WITH EYES CLOSED RESTING. BREATHING UNLABORED ON ROOM AIR. TELE INTACT. ANDI PICC SL;SITE CLEAN AND INTACT. PT STATES TO HAVE LITTLE PAIN AT THIS TIME. DENIES ANY N/D/V AT THIS TIME. BED IN LOWEST POSITION. DRESSING ON RIGHT FOOT C/D/I AND ELEVATED ON PILLOWS. NO OTHER NEEDS AT THIS TIME. PERSONAL ITEMS WELL CALL LIGHT WITHIN REACH. POC ONGOING.
--- NOTE | 2024-03-06 20:00 | NUR ---
RECEIVED REPORT FROM NURSE OROZCO, PATIENT RESTING IN BED, S/P AMPUTATION, RT FOOT ELEVATED WITH 2 PILLOW, JUST RECEIVED PRN PAIN MEDICATION, PUA PICC PATENT FLSHES WELL, GOOD BLOOD RETURN, ON TELEMTRY, BREATHING EVEN UNALBORED SCD LEFT LEG IN PLACED, CALL LIGHT IN REACHED.
--- NOTE | 2024-03-06 20:00 | NUR ---
PLATELET 102, DUE LOVENOX SCHEDULED, RETANNED LEATHER ROLLER JOB MADE AWARE, ORDER TO TONIGHT DOSE.
[2024-03-06] MEDS ORDERED: POTASSIUM CHLORIDE 20 MEQ/TAB PO SCH (21:00)
--- NOTE | 2024-03-06 23:43 | NUR ---
PATIENT C/O PAIN OF OPERATIVE FOOT PS 9/10, PRN DILAUDID GIVE, PATIENT RT FOOT ELEVATED 2 PILLOW,CALL LIGHT IN REACHED.
[2024-03-07] VITALS (13 sets, daily range): BP systolic 122–164; BP diastolic 53–68
--- NOTE | 2024-03-07 03:54 | NUR ---
BLOOD OBTAINED FROM PICC LINE AND FLUSHED, PATIENT DENIES PAIN AT THSI TIME. PATIENT EDUCATED ON NWB STATUS, AND THAT HE NEEDS TO GET WEIGHT DAILY, WILL OBTAIN WEIGHT LATER THIS MORNING
[2024-03-07 04:18] LABS: HEMATOCRIT 22.5 % (39.0-50.0); HEMOGLOBIN 7.4 g/dl (14.0-18.0); MEAN CELL VOLUME 92.6 fL CALC (80.0-100.0); MEAN CORPUSCULAR HGB 30.5 pG CALC (26.0-32.0); MEAN CORPUSCULAR HGB CONC 32.9 g/dL CAL (32.0-36.0); RED BLOOD COUNT 2.43 mill/uL (4.70-6.10)
[2024-03-07 04:34] LABS: ALBUMIN 2.2 g/dL (3.2-5.0); BILIRUBIN, TOTAL 0.6 mg/dL (0.2-1.3); CREATININE 0.9 mg/dL (0.7-1.3); MAGNESIUM 1.8 mg/dL (1.6-2.3); POTASSIUM 3.3 mmol/l (3.5-5.1); TOTAL PROTEIN 5.3 g/dL (6.3-8.2)
--- NOTE | 2024-03-07 06:21 | NUR ---
DAY WEB CONTENT EXECUTIVE AWARE THAT ONCE PATIENT AWAKE THAT HE NEEDS TO BE WEIGHED,AND THAT HE IS NWB ON RT FOOT.
--- NOTE | 2024-03-07 07:42 | NUR ---
patient a/o x3; room air; breathing unlabored and even; dneied any n/d/v at this time; some discomfort per patient; iv site clean and intact saline locked at this time; no s.s of distress at this time; tele intact and working; no complaints; call light within reach, verbalized understanding on how to use, personal items withihn reach; bed in lowest postion;safety measures inplace
[2024-03-07] MEDS ORDERED: SODIUM CHLORIDE 0.9% 500 ML IV ONE (08:55)
[2024-03-07] MEDS ORDERED: POTASSIUM CHLORIDE 20 MEQ/TAB PO SCH (09:00)
--- NOTE | 2024-03-07 09:33 | NUR ---
ULTA VAC (#[id number]) WAS RETURNED FROM PATIENT. THE VAC WAS NEVER PLACED ON PATIENT OR REMOVED FROM PACKAGING. VAC WAS RETURNED VIA THE [employer] [facility]. CONFIRMATION #[id number].
--- NOTE | 2024-03-07 11:52 | NUR ---
STARTED BLOOD TRANSFUSION WITH NATHAN PHIPPS
--- NOTE | 2024-03-07 15:04 | NUR ---
patient is walking to bathroom with walker, pateint was educated that he is non weight bearing onhis right foot, educated
--- NOTE | 2024-03-07 15:15 | NUR ---
after asssiting patient out of bathroom, educated patient on non weight baring on his foot as well as brooks risk and complications that can happpen, pateint verbalized understanding; no complaints
--- NOTE | 2024-03-07 17:21 | NUR ---
COMPLETE DRESSING CHANGE FOR RIGHT FOOT PER ORDER, NO COMPLAINTS
--- NOTE | 2024-03-07 19:31 | NUR ---
PATIENT OBSERVED RESTING IN BED ON HIS LEFT SIDE. ASSESSMENT COMPLETE. NO DISTRESS NOTED. COMPLAINTS OF PAIN TO RIGHT FOOT. PRN PAIN MEDICATION GIVEN ORDERED. PATIENT TOLERATED WELL. DENIES NEEDING ANYTHING ELSE AT THIS TIME. DRESSING INTACT TO RIGHT FOOT. BED IN LOW POSITION. CALL [facility] IN [facility].
[2024-03-08 00:38] VITALS: BP 149/78
--- NOTE | 2024-03-08 00:38 | NUR ---
PATIENT REMAINS RESTING IN BED ON HIS SIDE. DENIES NEEDING ANYTHING AT THIS TIME. BED REMAINS IN LOW POSITION. CALL [facility] IN RE[facility].
--- NOTE | 2024-03-08 01:44 | NUR ---
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 PATIENT STABLE. VS STABLE. NO NEW ORDERS.
[2024-03-08 01:52] VITALS: BP 135/60
--- NOTE | 2024-03-08 04:36 | NUR ---
PATIENT REMAINS RESTING IN BED ON HIS SIDE. DENIES NEEDING ANYTHING AT THIS TIME. BED REMAINS IN LOW POSITION. CALL [facility] IN RE[facility].
[2024-03-08 05:19] VITALS: BP 163/70
[2024-03-08 05:43] LABS: BASO% 0.5 % (0-3); EOS% 2.4 % (0-8); HEMATOCRIT 25.1 % (39.0-50.0); HEMOGLOBIN 8.3 g/dl (14.0-18.0); LYMPH% 15.7 % (15-41); MEAN CORPUSCULAR HGB 29.7 pG CALC (26.0-32.0); MEAN CORPUSCULAR HGB CONC 33.1 g/dL CAL (32.0-36.0); MONO% 9.2 % (2-13); NEUT# 6.17 thou/uL (1.82-7.42); NEUT% 67.2 % (42-76); RED BLOOD COUNT 2.79 mill/uL (4.70-6.10)
[2024-03-08 05:54] LABS: ALBUMIN 2.3 g/dL (3.2-5.0); CREATININE 0.7 mg/dL (0.7-1.3); MAGNESIUM 1.6 mg/dL (1.6-2.3); TOTAL PROTEIN 5.6 g/dL (6.3-8.2)
[2024-03-08 05:57] LABS: BILIRUBIN, TOTAL 0.9 mg/dL (0.2-1.3)
[2024-03-08] MEDS ORDERED: POTASSIUM CHLORIDE 20 MEQ/TAB PO SCH (07:00)
[2024-03-08 07:42] VITALS: BP 169/83
--- NOTE | 2024-03-08 10:00 | NUR ---
PT ALERT AND ORIENTED X 3. LUNGS CLEAR, RA. RIGHT FOOT DRESSING CHANGE DONE, IMAGES SENT TO DR PALMER, WHO RECEIVED THEM. PT IS ABLE TO BEAR HIS WEIGHT, VOIDS IN A SMALL TRASH CAN ACTING A URINAL.
[2024-03-08] MEDS ORDERED: CEFTRIAXONE2 GM IV (10:23)
[2024-03-08] MEDS ORDERED: LANTUS100 UNIT SC (10:25)
[2024-03-08] MEDS ORDERED: VENOFER20 MG/ML IV (10:25)
[2024-03-08] MEDS ORDERED: METFORMIN HCL500 M1 PO (10:26)
[2024-03-08 11:27] VITALS: BP 138/53
--- NOTE | 2024-03-08 14:45 | NUR ---
PT LEAVES AT THIS TIME FOR [facility] IN [facility]. PICC LINE REMAINS IN PLACE HE LEAVES. PT REQUESTED [facility] FOR DIARHHEA BUT TRANSPORT ARRIVED PRIOR TO IT APPEARING ON MAY. PT LEAVES IN STABLE CONDITION, NO ACUTE DISTRESS.
--- NOTE | 2024-03-08 16:31 | NUR ---
PT WAS SENT TO [facility] WITH THE TELE MONITOR ON. CALLED THE FACILITY AND TRYING TO REACH OUT TO THE NURSES. TRAUMA MANAGER HAS BEEN INFORMED.
== END 2024-03-08 14:32 | DRG 240 ==
LOC: ED 09:57 → MS2 14:36
PROVIDERS: Emergency Medicine; Internal Medicine; Nurse Practitioner Family; Podiatrist Foot & Ankle Surgery; ADMIT Internal Medicine; ATTEND Internal Medicine
PROC: 0JBQ0ZZ Excision of Right Foot Subcutaneous Tissue and Fascia, Open Approach (ICD-10-PCS; principal; 2024-03-01)
PROC: 0J9Q0ZZ Drainage of Right Foot Subcutaneous Tissue and Fascia, Open Approach (ICD-10-PCS; 2024-03-01)
PROC: 02HV33Z Insertion of Infusion Device into Superior Vena Cava, Percutaneous Approach (ICD-10-PCS; 2024-03-02)
PROC: B518ZZA Fluoroscopy of Superior Vena Cava, Guidance (ICD-10-PCS; 2024-03-02)
PROC: 0JBQ0ZZ Excision of Right Foot Subcutaneous Tissue and Fascia, Open Approach (ICD-10-PCS; 2024-03-03)
PROC: 0J9Q0ZZ Drainage of Right Foot Subcutaneous Tissue and Fascia, Open Approach (ICD-10-PCS; 2024-03-03)
PROC: 0Y6M0Z9 Detachment at Right Foot, Partial 1st Ray, Open Approach (ICD-10-PCS; 2024-03-06)
PROC: 0HXMXZZ Transfer Right Foot Skin, External Approach (ICD-10-PCS; 2024-03-06)
PROC: 0Y6M0ZB Detachment at Right Foot, Partial 2nd Ray, Open Approach (ICD-10-PCS; 2024-03-06)
PROC: 0Y6M0ZC Detachment at Right Foot, Partial 3rd Ray, Open Approach (ICD-10-PCS; 2024-03-06)
PROC: 0Y6M0ZD Detachment at Right Foot, Partial 4th Ray, Open Approach (ICD-10-PCS; 2024-03-06)
PROC: 0Y6M0ZF Detachment at Right Foot, Partial 5th Ray, Open Approach (ICD-10-PCS; 2024-03-06)
PROC: 0L8N3ZZ Division of Right Lower Leg Tendon, Percutaneous Approach (ICD-10-PCS; 2024-03-06)
PROC: 30243N1 Transfusion of Nonautologous Red Blood Cells into Central Vein, Percutaneous Approach (ICD-10-PCS; 2024-03-07)
DX: E11.52 Type 2 diabetes mellitus with diabetic peripheral angiopathy with gangrene (principal); D62 Acute posthemorrhagic anemia; L02.611 Cutaneous abscess of right foot; L03.115 Cellulitis of right lower limb; M86.8X7 Other osteomyelitis, ankle and foot; I70.268 Atherosclerosis of native arteries of extremities with gangrene, other extremity; L98.494 Non-pressure chronic ulcer of skin of other sites with necrosis of bone; E11.69 Type 2 diabetes mellitus with other specified complication; B95.4 Other streptococcus as the cause of diseases classified elsewhere; I11.0 Hypertensive heart disease with heart failure; I50.9 Heart failure, unspecified; E87.6 Hypokalemia; E11.65 Type 2 diabetes mellitus with hyperglycemia; E83.42 Hypomagnesemia; F43.10 Post-traumatic stress disorder, unspecified; S91.331D Puncture wound without foreign body, right foot, subsequent encounter; W34.00XD Accidental discharge from unspecified firearms or gun, subsequent encounter
CPT/HCPCS: A9579; J0131; J0692; J0696; J1171; J1596; J1650; J1756; J1815; J2405; J3370; J3475; J3480; P9016

== ENCOUNTER 2024-04-13 17:33 | Inpatient (IN) | payer OTHER, MEDICARE ==
[~2024-04-13] VITALS: Ht 180.3 cm; Wt 111.0 kg
[~2024-04-13 17:33] MED LIST: CEFTRIAXONE2 GM IV; CELEBREX100 M1 PO; CYMBALTA30 MG PO; FUROSEMIDE20 MG PO; HYDROXYZ HCL25 MG PO; LANTUS100 UNIT SC; LISINOPRIL5 MG PO; LORTAB 7.57.5 MG PO; METFORMIN HCL500 M1 PO; VENOFER20 MG/ML IV; ZOFRAN4 MG/TAB PO; [UNRECOGNIZED DRUG - OTHER] PO
[2024-04-13] MEDS ORDERED: SODIUM CHLORIDE 0.9% 1,000 ML IV ONE (17:40)
[2024-04-13 17:46] VITALS: BP 125/74
[2024-04-13 18:01] VITALS: BP 125/66
[2024-04-13 18:16] VITALS: BP 144/67
[2024-04-13 18:30] LABS: BASO% 0.4 % (0-3); EOS% 0.8 % (0-8); IMMATURE GRANULOCYTES 0.4 % (0.0-5.0); LYMPH% 15.9 % (15-41); MEAN CELL VOLUME 89.4 fL CALC (80.0-100.0); MEAN CORPUSCULAR HGB 29.7 pG CALC (26.0-32.0); MEAN CORPUSCULAR HGB CONC 33.2 g/dL CAL (32.0-36.0); MONO% 9.3 % (2-13); NEUT# 5.28 thou/uL (1.82-7.42); NEUT% 73.2 % (42-76); RED BLOOD COUNT 4.17 mill/uL (4.70-6.10); RED CELL DISTRI WIDTH 14.7 % (11.5-15.5)
[2024-04-13 18:31] VITALS: BP 159/73
[2024-04-13 18:31] LABS: HEMATOCRIT 37.3 % (39.0-50.0); HEMOGLOBIN 12.4 g/dl (14.0-18.0)
[2024-04-13 18:41] LABS: BILIRUBIN, TOTAL 1.2 mg/dL (0.2-1.3); BUN 21 mg/dL (8-23); BUN/CREATININE RATIO 20 (12-20 (CALC)); CHLORIDE 104 mmol/l (95-108); CREATININE 1.1 mg/dL (0.7-1.3); ESTIMATED GFR 72 ML/MIN (>=90 (CALC)); POTASSIUM 3.6 mmol/l (3.5-5.1); SODIUM 139 mmol/l (137-146)
[2024-04-13 18:43] LABS: ALBUMIN 3.9 g/dL (3.2-5.0); ALKALINE PHOSPHATASE 139 u/l (38-126); ANION GAP 13 (6-22 (CALC)); CARBON DIOXIDE 26 mmol/l (22-30); SGOT/AST 52 u/l (19-48); TOTAL PROTEIN 7.7 g/dL (6.3-8.2)
[2024-04-13 18:45] VITALS: BP 157/73
[2024-04-13] MEDS ORDERED: cefTRIAXone SODIUM 2 GM in SODIUM CHLORIDE 0.9% 100 ML IV ONE (19:00)
[2024-04-13] MEDS ORDERED: SODIUM CHLORIDE 0.9% 1,000 ML IV SCH (19:00)
[2024-04-13 19:01] VITALS: BP 150/78
[2024-04-13 20:13] LABS: URINE BILIRUBIN - DIPSTICK Negative (NEGATIVE); URINE BLOOD DIPSTICK Negative (NEGATIVE); URINE GLUCOSE - DIPSTICK Negative (NEGATIVE); URINE KETONE Trace mg/dL (NEGATIVE); URINE LEUK ESTERASE Negative (NEGATIVE); URINE NITRITE - DIPSTICK Negative (Negative); URINE PH 5.5 (4.5-8.0); URINE PROTEIN - DIPSTICK Trace mg/dL (NEG-TRACE)
[2024-04-13] MEDS ORDERED: ONDANSETRON HCl 4 MG/2 ML SDV IV ONE (20:20)
[2024-04-13] MEDS ORDERED: MORPHINE SULFATE 4 MG/ML VIAL IV ONE (20:20)
[2024-04-13 20:36] LABS: URINE COLOR Yellow
[2024-04-14] VITALS (16 sets, daily range): BP systolic 127–180; BP diastolic 59–155
[2024-04-14] MEDS ORDERED: VANCOMYCIN HCL 1 GM in SODIUM CHLORIDE 0.9% 500 ML IV ONE (00:20)
[2024-04-14] MEDS ORDERED: Polyethylene Glycol 3350 17 GM/PKT PO PRN (00:35)
[2024-04-14] MEDS ORDERED: FAMOTIDINE 10MG/ML 2ML SDV IV PRN (00:35)
[2024-04-14] MEDS ORDERED: ONDANSETRON HCl 4 MG/2 ML SDV IV PRN (00:35)
[2024-04-14] MEDS ORDERED: IBUPROFEN 800 MG/TAB PO PRN (00:35)
[2024-04-14] MEDS ORDERED: ONDANSETRON 4 MG/TAB ODT PO PRN (00:35)
[2024-04-14] MEDS ORDERED: ALUM & MAG HYDROX-SIMETHICONE 30 ML PO PRN (00:35)
[2024-04-14] MEDS ORDERED: MORPHINE SULFATE 4 MG/ML VIAL IV ONE (01:55)
[2024-04-14] MEDS ORDERED: ONDANSETRON HCl 4 MG/2 ML SDV IV ONE (01:55)
[2024-04-14] MEDS ORDERED: SODIUM CHLORIDE 0.9% 1,000 ML IV ONE (02:14)
[2024-04-14] MEDS ORDERED: SODIUM CHLORIDE 0.9% 1,000 ML IV PRN (07:40)
[2024-04-14] MEDS ORDERED: ASPIRIN 81 MG/TAB PO SCH (08:00)
[2024-04-14] MEDS ORDERED: DEXTROSE 250 ML IV PRN (10:05)
[2024-04-14] MEDS ORDERED: INSULIN LISPRO 100 UNITS/ML ML SC SCH (11:00)
[2024-04-14] MEDS ORDERED: CEFEPIME HYDROCHLORIDE 2 GM in SODIUM CHLORIDE 0.9% 100 ML IV SCH (12:00)
[2024-04-14] MEDS ORDERED: CHOLESTYRAMINE4 G1 PO (12:16)
[2024-04-14] MEDS ORDERED: KLOR-CON M1010 MEQ PO (12:16)
[2024-04-14] MEDS ORDERED: VANCOMYCIN HCL 1,250 MG in SODIUM CHLORIDE 0.9% 225 ML IV SCH (14:00)
[2024-04-14] MEDS ORDERED: FUROSEMIDE 20 MG/TAB PO SCH (14:00)
[2024-04-14] MEDS ORDERED: PIPERACILLIN Sodium-Tazobactam 4.5 GM in SODIUM CHLORIDE 0.9% 100 ML IV SCH (18:00)
[2024-04-14] MEDS ORDERED: LISINOPRIL 5 MG/TAB PO SCH (21:00)
[2024-04-15] VITALS (7 sets, daily range): BP systolic 138–175; BP diastolic 57–77
[2024-04-15 06:56] LABS: INTERNATIONAL NORMALIZED RATIO 1.2 RATIO (0.7-1.3)
[2024-04-15 07:01] LABS: BASO% 0.5 % (0-3); EOS% 2.5 % (0-8); HEMATOCRIT 33.9 % (39.0-50.0); HEMOGLOBIN 11.5 g/dl (14.0-18.0); IMMATURE GRANULOCYTES 0.2 % (0.0-5.0); LYMPH% 11.6 % (15-41); MEAN CELL VOLUME 88.7 fL CALC (80.0-100.0); MEAN CORPUSCULAR HGB 30.1 pG CALC (26.0-32.0); MEAN CORPUSCULAR HGB CONC 33.9 g/dL CAL (32.0-36.0); NEUT% 72.2 % (42-76); RED BLOOD COUNT 3.82 mill/uL (4.70-6.10); RED CELL DISTRI WIDTH 14.5 % (11.5-15.5)
[2024-04-15 07:03] LABS: PROTHROMBIN TIME 12.7 SECONDS (9.0-12.5)
[2024-04-15 07:05] LABS: ALBUMIN 3.3 g/dL (3.2-5.0); BILIRUBIN, TOTAL 1.6 mg/dL (0.2-1.3); CREATININE 0.9 mg/dL (0.7-1.3); TOTAL PROTEIN 6.6 g/dL (6.3-8.2)
[2024-04-15 07:20] LABS: MAGNESIUM 1.5 mg/dL (1.6-2.3)
[2024-04-15 07:22] LABS: POTASSIUM 2.8 mmol/l (3.5-5.1)
[2024-04-15] MEDS ORDERED: traMADol HCL 50 MG/TAB PO PRN (08:00)
[2024-04-15] MEDS ORDERED: POTASSIUM CHLORIDE 20 MEQ/TAB PO SCH ×2 (08:00→21:00)
[2024-04-15] MEDS ORDERED: MAGNESIUM SULFATE HEPTAHYDRATE 50 ML IV SCH ×2 (09:00→11:30)
[2024-04-15] MEDS ORDERED: ESCITALOPRAM OXA5 MG PO (13:01)
[2024-04-15] MEDS ORDERED: GABAPENTIN600 M1 PO (13:02)
[2024-04-15] MEDS ORDERED: SODIUM CHLORIDE 0.9% 250 ML IV ONE (14:45)
[2024-04-16 04:26] VITALS: BP 139/66
[2024-04-16 05:48] LABS: BASO% 0.6 % (0-3); EOS% 4.8 % (0-8); HEMATOCRIT 32.2 % (39.0-50.0); HEMOGLOBIN 10.9 g/dl (14.0-18.0); IMMATURE GRANULOCYTES 0.2 % (0.0-5.0); LYMPH% 17.1 % (15-41); MEAN CELL VOLUME 89.7 fL CALC (80.0-100.0); MEAN CORPUSCULAR HGB 30.4 pG CALC (26.0-32.0); MEAN CORPUSCULAR HGB CONC 33.9 g/dL CAL (32.0-36.0); MONO% 11.6 % (2-13); NEUT# 4.12 thou/uL (1.82-7.42); NEUT% 65.7 % (42-76); RED BLOOD COUNT 3.59 mill/uL (4.70-6.10); RED CELL DISTRI WIDTH 14.6 % (11.5-15.5)
[2024-04-16 06:02] LABS: ALBUMIN 3.1 g/dL (3.2-5.0); BILIRUBIN, TOTAL 1.5 mg/dL (0.2-1.3); CREATININE 0.8 mg/dL (0.7-1.3); MAGNESIUM 1.8 mg/dL (1.6-2.3); POTASSIUM 2.6 mmol/l (3.5-5.1); TOTAL PROTEIN 6.3 g/dL (6.3-8.2)
[2024-04-16] MEDS ORDERED: metFORMIN HYDROCHLORIDE 500 MG/TAB PO SCH (07:30)
[2024-04-16 08:06] VITALS: BP 150/96
[2024-04-16 10:52] VITALS: BP 150/61
[2024-04-16] MEDS ORDERED: POTASSIUM CHLORIDE 20MEQ 100 ML IV SCH (11:00)
[2024-04-16 14:53] VITALS: BP 158/71
[2024-04-16 19:27] VITALS: BP 169/55
[2024-04-16] MEDS ORDERED: QUEtiapine FUMERATE 25 MG/TAB PO SCH (21:00)
[2024-04-16 23:42] VITALS: BP 152/61
[2024-04-17] VITALS (7 sets, daily range): BP systolic 152–176; BP diastolic 64–83
[2024-04-17 13:38] LABS: BILIRUBIN, TOTAL 1.4 mg/dL (0.2-1.3); CREATININE 0.7 mg/dL (0.7-1.3); TOTAL PROTEIN 7.5 g/dL (6.3-8.2)
[2024-04-17 13:43] LABS: ALBUMIN 3.8 g/dL (3.2-5.0); POTASSIUM 3.7 mmol/l (3.5-5.1)
[2024-04-17 23:00] LABS: URINE BILIRUBIN - DIPSTICK Negative (NEGATIVE); URINE BLOOD DIPSTICK Negative (NEGATIVE); URINE GLUCOSE - DIPSTICK Negative (NEGATIVE); URINE KETONE Negative (NEGATIVE); URINE LEUK ESTERASE Negative (NEGATIVE); URINE NITRITE - DIPSTICK Negative (Negative); URINE PH 6.5 (4.5-8.0); URINE PROTEIN - DIPSTICK Negative (NEG-TRACE); URINE UROBILINOGEN - DIPSTICK 0.2 E.U./dL (0.2)
[2024-04-17 23:02] LABS: URINE COLOR Yellow
[2024-04-18 06:23] LABS: BASO% 1.1 % (0-3); HEMATOCRIT 32.4 % (39.0-50.0); IMMATURE GRANULOCYTES 0.4 % (0.0-5.0); LYMPH% 18.6 % (15-41); MEAN CELL VOLUME 89.5 fL CALC (80.0-100.0); MEAN CORPUSCULAR HGB 30.4 pG CALC (26.0-32.0); MONO% 12.8 % (2-13); NEUT# 3.24 thou/uL (1.82-7.42); NEUT% 62.1 % (42-76); RED BLOOD COUNT 3.62 mill/uL (4.70-6.10); RED CELL DISTRI WIDTH 14.4 % (11.5-15.5)
[2024-04-18 06:53] LABS: BILIRUBIN, TOTAL 1.1 mg/dL (0.2-1.3); CREATININE 0.7 mg/dL (0.7-1.3); MAGNESIUM 1.5 mg/dL (1.6-2.3); POTASSIUM 3.3 mmol/l (3.5-5.1); TOTAL PROTEIN 6.1 g/dL (6.3-8.2)
[2024-04-18 07:12] VITALS: BP 140/59
[2024-04-18] MEDS ORDERED: MAGNESIUM SULFATE HEPTAHYDRATE 50 ML IV SCH (08:30)
[2024-04-18 10:13] VITALS: BP 177/81
[2024-04-18] MEDS ORDERED: QUETIAPINE FUMA25 MG PO (13:46)
[2024-04-18] MEDS ORDERED: DOXYCYCLINE100 MG PO (13:48)
[2024-04-18 14:35] VITALS: BP 124/71
[2024-04-18 19:24] VITALS: BP 170/84
[2024-04-18 19:28] VITALS: BP 170/84
== END 2024-04-18 21:00 | DRG 603 ==
LOC: ED 17:33 → ED-I 04-14 00:01 → ED 04-14 00:47 → MS2 04-14 00:48
PROVIDERS: Emergency Medicine; Nurse Practitioner Family; ADMIT Internal Medicine; ATTEND Internal Medicine
DX: L03.115 Cellulitis of right lower limb (principal); R44.3 Hallucinations, unspecified; E11.42 Type 2 diabetes mellitus with diabetic polyneuropathy; I11.0 Hypertensive heart disease with heart failure; I50.9 Heart failure, unspecified; F43.10 Post-traumatic stress disorder, unspecified; K74.60 Unspecified cirrhosis of liver; E87.6 Hypokalemia; R74.02 Elevation of levels of lactic acid dehydrogenase [LDH]; M50.322 Other cervical disc degeneration at C5-C6 level; M48.02 Spinal stenosis, cervical region; R41.0 Disorientation, unspecified; S09.90XA Unspecified injury of head, initial encounter; W19.XXXA Unspecified fall, initial encounter; Y92.009 Unspecified place in unspecified non-institutional (private) residence as the place of occurrence of the external cause; Z91.81 History of falling; Z79.4 Long term (current) use of insulin; Z79.85 Long-term (current) use of injectable non-insulin antidiabetic drugs; Z89.431 Acquired absence of right foot
CPT/HCPCS: J0692; J0696; J1815; J2405; J2543; J3370; J3475; J3480; Q9967

== ENCOUNTER 2024-05-06 13:13 | Emergency (ER) | payer MEDICARE, OTHER ==
[~2024-05-06] VITALS: Ht 180.3 cm; Wt 115.0 kg
[~2024-05-06 13:13] MED LIST changes: +CHOLESTYRAMINE4 G1 PO; +DOXYCYCLINE100 MG PO; +ESCITALOPRAM OXA5 MG PO; +GABAPENTIN600 M1 PO; +KLOR-CON M1010 MEQ PO; +QUETIAPINE FUMA25 MG PO
[2024-05-06 13:24] VITALS: BP 165/115
[2024-05-06 13:31] VITALS: BP 144/85
[2024-05-06 13:45] VITALS: BP 135/85
[2024-05-06] MEDS ORDERED: TRANEXAMIC ACID 100 MG/ML 10ML TOP ONE (13:50)
[2024-05-06 14:00] VITALS: BP 129/62
[2024-05-06 14:16] VITALS: BP 110/93
[2024-05-06] MEDS ORDERED: KEFLEX500 MG PO (14:26)
[2024-05-06] MEDS ORDERED: HYDROCO/APAP1 T10 PO (14:28)
[2024-05-06 14:31] VITALS: BP 131/72
== END 2024-05-06 14:43 | disposition home or self-care (01) ==
LOC: ED 13:13
DX: S81.811A Laceration without foreign body, right lower leg, initial encounter (principal); I11.0 Hypertensive heart disease with heart failure; I50.9 Heart failure, unspecified; E11.9 Type 2 diabetes mellitus without complications; W22.09XA Striking against other stationary object, initial encounter; Y92.009 Unspecified place in unspecified non-institutional (private) residence as the place of occurrence of the external cause

== ENCOUNTER 2024-05-22 08:40 | Observation (INO) | payer OTHER, MEDICARE ==
[~2024-05-22] VITALS: Ht 180.3 cm; Wt 104.0 kg
[~2024-05-22 08:40] MED LIST changes: +HYDROCO/APAP1 T10 PO; +KEFLEX500 MG PO
[2024-05-22 08:45] VITALS: BP 170/95
[2024-05-22] MEDS ORDERED: LEXAPRO10 MG PO (08:57)
[2024-05-22] MEDS ORDERED: MELOXICAM7.5 MG PO (08:58)
[2024-05-22] MEDS ORDERED: MAGNESIUM OXID400 M3 PO (08:58)
[2024-05-22] MEDS ORDERED: PRAZOSIN HCL1 M1 PO (08:59)
[2024-05-22] MEDS ORDERED: PREVALITE4 G1 PO (09:00)
[2024-05-22] MEDS ORDERED: METHOCARBAMOL500 MG PO (09:00)
[2024-05-22] MEDS ORDERED: APAP/CODEINE1 TAB PO (09:04)
[2024-05-22] MEDS ORDERED: PETROLATUM (09:06)
[2024-05-22 09:25] LABS: URINE BILIRUBIN - DIPSTICK Negative (NEGATIVE); URINE BLOOD DIPSTICK Negative (NEGATIVE); URINE GLUCOSE - DIPSTICK Negative (NEGATIVE); URINE KETONE Negative (NEGATIVE); URINE LEUK ESTERASE Trace (NEGATIVE); URINE NITRITE - DIPSTICK Negative (Negative); URINE PH 5.5 (4.5-8.0); URINE PROTEIN - DIPSTICK 30 mg/dL (NEG-TRACE); URINE UROBILINOGEN - DIPSTICK 0.2 E.U./dL (0.2)
[2024-05-22 09:27] LABS: URINE COLOR Yellow
[2024-05-22 09:31] LABS: BASO% 0.5 % (0-3); EOS% 0.5 % (0-8); HEMOGLOBIN 12.7 g/dl (14.0-18.0); IMMATURE GRANULOCYTES 0.2 % (0.0-5.0); LYMPH% 10.4 % (15-41); MEAN CELL VOLUME 85.1 fL CALC (80.0-100.0); MEAN CORPUSCULAR HGB 29.2 pG CALC (26.0-32.0); MEAN CORPUSCULAR HGB CONC 34.3 g/dL CAL (32.0-36.0); NEUT# 6.5 thou/uL (1.82-7.42); NEUT% 80.4 % (42-76); RED BLOOD COUNT 4.35 mill/uL (4.70-6.10); RED CELL DISTRI WIDTH 14.1 % (11.5-15.5)
[2024-05-22 09:35] LABS: URINE MUCUS RARE hpf (NONE-FEW); URINE WBC 0-2 WBC/hpf (0-5)
[2024-05-22 09:42] LABS: ANION GAP 11 (6-22 (CALC)); BUN 20 mg/dL (8-23); BUN/CREATININE RATIO 30 (12-20 (CALC)); CARBON DIOXIDE 24 mmol/l (22-30); CHLORIDE 106 mmol/l (95-108); CREATININE 0.7 mg/dL (0.7-1.3); ESTIMATED GFR 99 ML/MIN (>=90 (CALC)); ETHYL ALCOHOL 0 mg/dl (0-30); POTASSIUM 3.4 mmol/l (3.5-5.1); SODIUM 138 mmol/l (137-146)
[2024-05-22] MEDS ORDERED: KETOROLAC TROMETHAMINE 15 MG/ML SDV IV ONE (09:45)
[2024-05-22 10:11] LABS: TOTAL PROTEIN 7.4 g/dL (6.3-8.2)
[2024-05-22 10:12] LABS: ALBUMIN 3.8 g/dL (3.2-5.0); ALKALINE PHOSPHATASE 224 u/l (38-126); SGOT/AST 172 u/l (19-48)
[2024-05-22 10:13] LABS: TSH, 3RD GENERATION 1.24 uIU/mL (0.47 - 4.68)
[2024-05-22] MEDS ORDERED: HYDROCO/APAP1 TA9 PO ×2 (10:27→10:29)
[2024-05-22] MEDS ORDERED: SEROQUEL25 MG PO (10:27)
[2024-05-22] MEDS ORDERED: GABAPENTIN 300 MG/CAP PO PRN (13:15)
[2024-05-22] MEDS ORDERED: ACETAMINOPHEN 325 MG/TAB PO PRN (13:20)
[2024-05-22] MEDS ORDERED: POTASSIUM CHLORIDE 20MEQ 100 ML IV ONE (13:20)
[2024-05-22] MEDS ORDERED: Polyethylene Glycol 3350 17 GM/PKT PO PRN (13:20)
[2024-05-22] MEDS ORDERED: ONDANSETRON 4 MG/TAB ODT SL PRN (13:20)
[2024-05-22] MEDS ORDERED: SODIUM CHLORIDE 0.9% 1,000 ML IV ONE (13:50)
[2024-05-22 14:20] VITALS: BP 170/78
[2024-05-22] MEDS ORDERED: cefTRIAXone SODIUM 2 GM in SODIUM CHLORIDE 0.9% 100 ML IV SCH (15:00)
[2024-05-22] MEDS ORDERED: VANCOMYCIN HCL 1 GM in SODIUM CHLORIDE 0.9% 250 ML IV SCH (16:00)
[2024-05-22] MEDS ORDERED: INSULIN LISPRO 100 UNITS/ML ML SC SCH (17:00)
[2024-05-22 18:53] VITALS: BP 167/81
[2024-05-22 20:00] VITALS: BP 130/70
[2024-05-22] MEDS ORDERED: QUEtiapine FUMERATE 25 MG/TAB PO SCH (21:00)
[2024-05-22] MEDS ORDERED: ENOXAPARIN SODIUM 40 MG/0.4 ML SYR SC SCH (21:00)
[2024-05-22] MEDS ORDERED: LISINOPRIL 5 MG/TAB PO SCH (21:00)
[2024-05-23] VITALS (9 sets, daily range): BP systolic 110–172; BP diastolic 54–78
[2024-05-23] MEDS ORDERED: SODIUM CHLORIDE 0.9% 0 ML IV ONE (03:34)
[2024-05-23] MEDS ORDERED: SODIUM CHLORIDE 0.9% 250 ML IV ONE (03:36)
[2024-05-23 05:15] LABS: ALBUMIN 3.4 g/dL (3.2-5.0); BILIRUBIN, TOTAL 1.3 mg/dL (0.2-1.3); CREATININE 0.6 mg/dL (0.7-1.3); MAGNESIUM 1.5 mg/dL (1.6-2.3); POTASSIUM 3.6 mmol/l (3.5-5.1); TOTAL PROTEIN 6.7 g/dL (6.3-8.2)
[2024-05-23 05:56] LABS: EOS% 1.9 % (0-8); HEMATOCRIT 36.4 % (39.0-50.0); HEMOGLOBIN 11.9 g/dl (14.0-18.0); IMMATURE GRANULOCYTES 0.2 % (0.0-5.0); LYMPH% 18.4 % (15-41); MEAN CELL VOLUME 90.1 fL CALC (80.0-100.0); MEAN CORPUSCULAR HGB 29.5 pG CALC (26.0-32.0); MEAN CORPUSCULAR HGB CONC 32.7 g/dL CAL (32.0-36.0); MONO% 12.1 % (2-13); NEUT# 4.12 thou/uL (1.82-7.42); NEUT% 66.4 % (42-76); RED BLOOD COUNT 4.04 mill/uL (4.70-6.10); RED CELL DISTRI WIDTH 14.6 % (11.5-15.5)
[2024-05-23] MEDS ORDERED: HYDROcodone 5 MG/Acetaminophen 325 MG/COMBO PO PRN (07:45)
[2024-05-23] MEDS ORDERED: MAGNESIUM SULFATE HEPTAHYDRATE 50 ML IV SCH (09:00)
[2024-05-23] MEDS ORDERED: ESCITALOPRAM 10 MG/TAB PO SCH (09:00)
[2024-05-24 04:23] VITALS: BP 159/75
[2024-05-24 05:55] LABS: BASO% 0.7 % (0-3); EOS% 1.7 % (0-8); HEMATOCRIT 32.3 % (39.0-50.0); HEMOGLOBIN 11.1 g/dl (14.0-18.0); IMMATURE GRANULOCYTES 0.3 % (0.0-5.0); LYMPH% 21.4 % (15-41); MEAN CELL VOLUME 85.4 fL CALC (80.0-100.0); MEAN CORPUSCULAR HGB 29.4 pG CALC (26.0-32.0); MEAN CORPUSCULAR HGB CONC 34.4 g/dL CAL (32.0-36.0); MONO% 11.8 % (2-13); NEUT# 3.68 thou/uL (1.82-7.42); NEUT% 64.1 % (42-76); RED BLOOD COUNT 3.78 mill/uL (4.70-6.10); RED CELL DISTRI WIDTH 14.3 % (11.5-15.5)
[2024-05-24 06:13] LABS: ALBUMIN 3.3 g/dL (3.2-5.0); BILIRUBIN, TOTAL 1.2 mg/dL (0.2-1.3); CREATININE 0.8 mg/dL (0.7-1.3); MAGNESIUM 1.7 mg/dL (1.6-2.3); POTASSIUM 3.2 mmol/l (3.5-5.1); TOTAL PROTEIN 6.6 g/dL (6.3-8.2)
[2024-05-24 07:10] VITALS: BP 144/51
[2024-05-24] MEDS ORDERED: POTASSIUM CHLORIDE 20 MEQ/TAB PO SCH (08:00)
[2024-05-24 09:35] VITALS: BP 158/82
[2024-05-24] MEDS ORDERED: HYDROCO/APAP1 TA9 PO (10:29)
[2024-05-24 11:00] VITALS: BP 158/82
== END 2024-05-24 14:28 | DRG 918 ==
LOC: ED 08:40 → ED-I 12:42 → ED 12:57 → MS2 12:58
PROVIDERS: Family Medicine; Nurse Practitioner Family; ADMIT Internal Medicine; ATTEND Internal Medicine
DX: T40.2X1A Poisoning by other opioids, accidental (unintentional), initial encounter (principal); T39.1X1A Poisoning by 4-Aminophenol derivatives, accidental (unintentional), initial encounter; T42.6X1A Poisoning by other antiepileptic and sedative-hypnotic drugs, accidental (unintentional), initial encounter; T45.0X1A Poisoning by antiallergic and antiemetic drugs, accidental (unintentional), initial encounter; R44.1 Visual hallucinations; I11.0 Hypertensive heart disease with heart failure; I50.9 Heart failure, unspecified; E11.9 Type 2 diabetes mellitus without complications; N40.0 Benign prostatic hyperplasia without lower urinary tract symptoms; G89.29 Other chronic pain; R79.89 Other specified abnormal findings of blood chemistry; F43.10 Post-traumatic stress disorder, unspecified
CPT/HCPCS: J0696; J1650; J1815; J1885; J3370; J3475; J3480